=== PATIENT | male | born 1975 | race Caucasian/White ===

== ENCOUNTER → 2020-11-17 | Outpatient (CLI) | payer MEDICARE, OTHER | LOC: KOH-I 12:45 | DX: M54.6 Pain in thoracic spine (principal); M51.27 Other intervertebral disc displacement, lumbosacral region; M51.34 Other intervertebral disc degeneration, thoracic region; M51.36 Other intervertebral disc degeneration, lumbar region | CPT/HCPCS: 72070; 72110 ==